=== PATIENT | female | born 1990 | race Two or more races ===

== ENCOUNTER 2024-09-19 21:37 | Emergency (ER) | payer MEDICAID, OTHER ==
[~2024-09-19] VITALS: Ht 149.9 cm; Wt 48.6 kg
[2024-09-19 22:23] VITALS: BP 129/83; PULSE 90; RESP 16; TEMP 98.2; O2SAT 96
== END 2024-09-20 02:15 | disposition left against medical advice (07) ==
LOC: ER 21:37
DX: M79.675 Pain in left toe(s) (principal); Z53.21 Procedure and treatment not carried out due to patient leaving prior to being seen by health care provider